=== PATIENT | male | born 1940 | race Caucasian/White ===

== ENCOUNTER 2017-09-29 17:12 | Emergency (ER) | payer MEDICARE, MEDICAID ==
[~2017-09-29] VITALS: Ht 182.9 cm; Wt 82.1 kg
[2017-09-29] MEDS ORDERED: GABA-532 PO (17:51)
[2017-09-29] MEDS ORDERED: THIO200T PO (17:51)
[2017-09-29] MEDS ORDERED: MAG355OR18 PO (17:51)
[2017-09-29] MEDS ORDERED: OXYC-132 PO (17:51)
[2017-09-29] MEDS ORDERED: MAGN400O6 PO (17:51)
[2017-09-29] MEDS ORDERED: AMIO200T2 PO (17:51)
[2017-09-29] MEDS ORDERED: NA P133E RC (17:51)
[2017-09-29] MEDS ORDERED: MULT237L4 PO (17:51)
[2017-09-29] MEDS ORDERED: OXYC-133 PO (17:51)
[2017-09-29] MEDS ORDERED: LIDO30AD10 TD (17:51)
[2017-09-29] MEDS ORDERED: ACET325T53 PO (17:51)
[2017-09-29] MEDS ORDERED: LORA0.5T48 PO (17:51)
[2017-09-29] MEDS ORDERED: NITR0.4T48 SL (17:51)
[2017-09-29] MEDS ORDERED: BUME1TAB4 PO (17:51)
[2017-09-29] MEDS ORDERED: QUET25TA PO (17:51)
[2017-09-29] MEDS ORDERED: LORA-258 PO (17:51)
[2017-09-29] MEDS ORDERED: FINA5TAB3 PO (17:51)
[2017-09-29 17:59] LABS: BASOPHILS % (AUTO) 0.5 % (0.0-2.0); EOSINOPHILS % (AUTO) 0.1 % (0.0-7.0); HEMATOCRIT 36.6 % (36.7-47.1); HEMOGLOBIN 12.2 g/dL (12.5-16.3); LYMPHOCYTES # (AUTO) 0.6 K/uL (20.0-40.0); LYMPHOCYTES % (AUTO) 6.9 % (20.5-51.5); MEAN CORPUSCULAR HEMOGLOBIN 28.4 uug (23.8-33.4); MEAN CORPUSCULAR HGB CONC 33 g/dL (32.5-36.3); MEAN CORPUSCULAR VOLUME 85.2 fL (73.0-96.2); MONOCYTES # (AUTO) 0.9 K/uL (2.0-10.0); MONOCYTES % (AUTO) 10.3 % (0.0-11.0); NEUTROPHILS # (AUTO) 7.3 K/uL (1.8-8.9); NEUTROPHILS % (AUTO) 82.2 % (38.5-71.5); PLATELET COUNT (AUTO) 247 K/uL (152-348); WHITE BLOOD COUNT (AUTO) 8.8 K/uL (3.6-10.2)
[2017-09-29 18:02] LABS: CARBON DIOXIDE 26 mmol/L (21-32); CHLORIDE 101 mmol/L (98-107); CREATININE 1.5 mg/dL (0.6-1.3); GLUCOSE 105 mg/dL (74-106); POTASSIUM 3.9 mmol/L (3.5-5.1); UREA NITROGEN, BLOOD 23 mg/dL (7-18)
[2017-09-29 18:08] LABS: ALANINE AMINOTRANSFERASE 24 U/L (16-63); ALKALINE PHOSPHATASE 149 U/L (50-136); ASPARTATE AMINOTRANSFERASE 24 U/L (15-37); BILIRUBIN,DIRECT 0.1 mg/dL (0.0-0.2); BILIRUBIN,TOTAL 0.3 mg/dL (0.2-1.0); TOTAL PROTEIN, SERUM 7.1 g/dL (6.4-8.2)
--- NOTE | 2017-09-29 19:49 | NUR ---
Patient in bed, no acute distress noted. Patient cleared for d/c per ER MD. Contacted [facility] BLS transportation. 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 Confirmation # is [id number].
--- NOTE | 2017-09-29 20:20 | NUR ---
Patient in bed, awaiting BLS transport for d/c to [facility].
--- NOTE | 2017-09-29 21:07 | NUR ---
Patient discharged to home in stable conditon. Written and verbal after care instructions given. Patient verbalizes understanding of instructions. Patient discharged via BLS transport, [facility] Unit # [id number]. VSS. All belongings with patient. Peripheral IV removed prior to discharge.
[2017-09-29 21:08] VITALS: BP 129/75
== END 2017-09-29 21:11 | disposition home or self-care (01) ==
LOC: ER 17:13
DX: I11.0 Hypertensive heart disease with heart failure (principal); I50.9 Heart failure, unspecified; B34.9 Viral infection, unspecified; I48.91 Unspecified atrial fibrillation; N40.0 Benign prostatic hyperplasia without lower urinary tract symptoms; Z88.5 Allergy status to narcotic agent
CPT/HCPCS: 36415; 70030-TC; 71045; 83605; 85025; 85730; 87040; 93005; A4663; J7050

== ENCOUNTER 2017-10-09 17:53 | Inpatient (IN) | payer MEDICARE, MEDICAID ==
[~2017-10-09] VITALS: Ht 172.7 cm; Wt 90.3 kg
[~2017-10-09 17:53] MED LIST: ACET325T53 PO; AMIO200T2 PO; BUME1TAB4 PO; FINA5TAB3 PO; GABA-532 PO; LIDO30AD10 TD; LORA-258 PO; LORA0.5T48 PO; MAG355OR18 PO; MAGN400O6 PO; MULT237L4 PO; NA P133E RC; NITR0.4T48 SL; OXYC-132 PO; OXYC-133 PO; QUET25TA PO; THIO200T PO
[2017-10-09] MEDS ORDERED: ONDANSETRON 4 MG/2 ML VIAL ONE (17:58)
[2017-10-09] MEDS ORDERED: MORPHINE SULFATE 4 MG/1 ML DISP.SYRIN ONE (17:58)
[2017-10-09] MEDS ORDERED: IV NORMAL SALINE 1000 ML BAG IV ONE (18:15)
[2017-10-09] MEDS ORDERED: MORPHINE SULFATE 2 MG/1 ML DISP.SYRIN IV ONE (18:15)
[2017-10-09] MEDS ORDERED: ONDANSETRON 4 MG/2 ML VIAL IV ONE (18:15)
[2017-10-09 18:38] LABS: CARBON DIOXIDE 25 mmol/L (21-32); CHLORIDE 100 mmol/L (98-107); CREATININE 1.8 mg/dL (0.6-1.3); GLUCOSE 206 mg/dL (74-106); POTASSIUM 3.6 mmol/L (3.5-5.1); UREA NITROGEN, BLOOD 31 mg/dL (7-18)
[2017-10-09 18:40] LABS: BASOPHILS # (AUTO) 0.1 K/uL (0.0-8.0); BASOPHILS % (AUTO) 0.3 % (0.0-2.0); EOSINOPHILS # (AUTO) 0.2 K/uL (0.0-0.7); HEMATOCRIT 43.6 % (36.7-47.1); LYMPHOCYTES # (AUTO) 0.9 K/uL (20.0-40.0); LYMPHOCYTES % (AUTO) 5.1 % (20.5-51.5); MEAN CORPUSCULAR HEMOGLOBIN 27.9 uug (23.8-33.4); MEAN CORPUSCULAR HGB CONC 32 g/dL (32.5-36.3); MEAN CORPUSCULAR VOLUME 86.7 fL (73.0-96.2); MONOCYTES % (AUTO) 6.1 % (0.0-11.0); NEUTROPHILS # (AUTO) 14.8 K/uL (1.8-8.9); NEUTROPHILS % (AUTO) 87.5 % (38.5-71.5); PLATELET COUNT (AUTO) 309 K/uL (152-348); RED BLOOD CELL COUNT(AUTO) 5.03 MIL/uL (4.06-5.63); WHITE BLOOD COUNT (AUTO) 16.9 K/uL (3.6-10.2)
[2017-10-09 18:44] LABS: ALANINE AMINOTRANSFERASE 51 U/L (16-63); ALKALINE PHOSPHATASE 170 U/L (50-136); ASPARTATE AMINOTRANSFERASE 40 U/L (15-37); BILIRUBIN,DIRECT 0.2 mg/dL (0.0-0.2); BILIRUBIN,TOTAL 0.7 mg/dL (0.2-1.0); TOTAL PROTEIN, SERUM 7.4 g/dL (6.4-8.2)
[2017-10-09] MEDS ORDERED: AZITHROMYCIN IV 500 MG in IV DEXTROSE 5% 250 ML IV ONE (19:15)
--- NOTE | 2017-10-09 19:25 | NUR ---
RECEIVED REPORT FROM HAJA PEREZ. PT IS IN BED. PT IS A&OX4. PT IS RECEIVING FLUIDS IV. BREATHING SOUNDS REGULAR AND UNLABORED. VSS. PT ABLE TO EXPRESS NEEDS. CALL LIGHT IN HAND. BED IN LOWEST POSITION W/ SIDERAILS UP.
--- NOTE | 2017-10-09 19:47 | NUR ---
PT IN BED. BREATH SOUNDS REGULAR AND UNLABORED. VSS. NO SIGNS OR SYMPTOMS OF DISTRESS WITNESSED AT THIS TIME. PT STATES THAT HE GREW UP IN [place] AND [place]RI[place] WITH MANY [employer] OFFICERS. MD STALLWORTH & MD DEL RIO DECIDE TO ADMIT TO TELE.
[2017-10-09] MEDS ORDERED: PIPERACILLIN/TAZOBACTAM/D5W 0 ML IV ONE (20:02)
[2017-10-09] MEDS ORDERED: PIPERACILLIN/TAZO 4.5 GM VIAL IV ONE (20:04)
[2017-10-09] MEDS: PIPERACILLIN SODIUM/TAZOBACTAM 4.5 G in IV DEXTROSE 5% 50 ML IV SCH ×2 (20:20→23:00)
[2017-10-09] MEDS ORDERED: AZITHROMYCIN 500 MG VIAL IV ONE (20:40)
[2017-10-09] MEDS ORDERED: ENOX40DI SQ (20:46)
[2017-10-09] MEDS ORDERED: MULT-213 PO (20:46)
[2017-10-09] MEDS ORDERED: GUAI237L83 PO (20:46)
--- NOTE | 2017-10-09 21:36 | NUR ---
REPORT GIVEN TO ANAI PEREZ, 2ND FLOOR TELE
[2017-10-09] MEDS ORDERED: NITROGLYCERIN 0.4 MG/TAB BOTTLE SL PRN (22:15)
[2017-10-09] MEDS ORDERED: LORAZEPAM 0.5 MG TABLET PO PRN (22:15)
[2017-10-09] MEDS ORDERED: ACETAMINOPHEN 325 MG TABLET PO PRN (22:15)
[2017-10-09] MEDS ORDERED: FLEET ENEMA 133 ML BOTTLE RC PRN (22:15)
[2017-10-09] MEDS ORDERED: LEVALBUTEROL HCL NEB 0.63 MG/3 ML NEBU NEB PRN (22:30)
[2017-10-09] MEDS ORDERED: ONDANSETRON 4 MG/2 ML VIAL IV PRN (22:30)
[2017-10-09] MEDS ORDERED: PIPERACILLIN/TAZOBACTAM/D5W 2.25 G in PREMIXED 1 EACH IV SCH (22:30)
--- NOTE | 2017-10-09 22:50 | NUR ---
PT TAKEN TO 2ND FLOOR
--- NOTE | 2017-10-09 22:54 | NUR ---
Received pt at 2254. Alert and awake, oriented to name and time. Complains of pain with cough, no s/s of distress. No SOB. Tele noted to be sinus tachy. Pt changed, made comfortable and oriented to unit. Bed in low, locked position. Call light within reach. Bed alarm on. Will continue to monitor.
[2017-10-09 23:46] VITALS: BP 102/71
[2017-10-10] VITALS (24 sets, daily range): BP systolic 88–128; BP diastolic 49–78
[2017-10-10] MEDS ORDERED: PIPERACILLIN/TAZO 2.25 GM VIAL ONE (00:06)
--- NOTE | 2017-10-10 00:13 | NUR ---
Received critical values from the lab, patient current Troponin level elevated 1.063, Lactic acid 2.9 w/ WBC of 16.9. Dr. Almendarez notified, received orders & carried out. Patient to be moved to CCU for close monitoring & Heparin drip. Tele shows sinus tachy 110 HR.
[2017-10-10] MEDS ORDERED: VANCOMYCIN IV 1,000 MG in IV DEXTROSE 5% 250 ML IV SCH (00:30)
--- NOTE | 2017-10-10 00:30 | NUR ---
Transferred to CCU via bed. No acute resp distress. Report given to CHRIS Ballesteros.
--- NOTE | 2017-10-10 00:45 | NUR ---
Dr Almendarez at bedside for assessment and eval. Report given
[2017-10-10] MEDS ORDERED: HEPARIN SODIUM,PORCINE 5,000 UNITS/ML VIAL ONE (00:58)
[2017-10-10] MEDS ORDERED: HEPARIN SODIUM,PORCINE 5,000 UNITS/ML VIAL IV PRN ×2 (01:15→10:15)
[2017-10-10] MEDS: HEPARIN/D5W DRIP 500 ML IV PRN (01:26)
[2017-10-10] MEDS: POTASSIUM CHLORIDE 20 MEQ in IV NS 1000 ML 1,000 ML IV PRN ×3 (01:39→20:13)
[2017-10-10] MEDS: ASPIRIN EC 325 MG TABLET.DR PO SCH ×2 (01:52→08:05)
[2017-10-10] MEDS: QUETIAPINE FUMARATE 25 MG TABLET PO SCH ×3 (01:52→21:00)
[2017-10-10] MEDS ORDERED: VANCOMYCIN IV 200 ML IV SCH (03:15)
[2017-10-10] MEDS: ACETAMINOPHEN 325 MG TABLET PO PRN (03:46)
[2017-10-10 05:20] LABS: *BILIRUBIN,URIN NEGATIVE (NEGATIVE); *BLOOD, URINE NEGATIVE (NEGATIVE); *CLARITY,URINE CLEAR (CLEAR); *COLOR,URINE YELLOW (YELLOW); *KETONES,URINE TRACE (NEGATIVE); *PROTEIN,URINE 1+ (NEGATIVE); LEUKOCYTE ESTERASE ,URINE NEGATIVE (NEGATIVE); NITRITE, URINE NEGATIVE (NEGATIVE); PH,URINE 5.5 (5.0-8.0); UGLUCOSE NEGATIVE (NEGATIVE)
[2017-10-10] MEDS: PIPERACILLIN/TAZOBACTAM/D5W 2.25 G in PREMIXED 1 EACH IV SCH ×2 (05:35→11:58)
[2017-10-10 05:42] LABS: BACTERIA,URINE NONE SEEN /HPF (NONE SEEN); RBC,URINE NONE SEEN /HPF (0-3); SQUAMOUS EPITHELIAL CELL,UR FEW /HPF (NONE SEEN); URINE AMORPHOUS URATE FEW /HPF; WBC,URINE 0-3 /HPF (0-3)
[2017-10-10] MEDS ORDERED: VANCOMYCIN IV 200 ML ONE (05:44)
--- NOTE | 2017-10-10 07:40 | NUR ---
PT.SLEEPING,NO S/S OF DISTRESS OR PAIN NOTED.
[2017-10-10 07:52] LABS: BASOPHILS # (AUTO) 0.1 K/uL (0.0-8.0); BASOPHILS % (AUTO) 0.6 % (0.0-2.0); EOSINOPHILS % (AUTO) 0.3 % (0.0-7.0); HEMATOCRIT 36.7 % (36.7-47.1); LYMPHOCYTES # (AUTO) 1.2 K/uL (20.0-40.0); LYMPHOCYTES % (AUTO) 12.5 % (20.5-51.5); MEAN CORPUSCULAR HGB CONC 33 g/dL (32.5-36.3); MEAN CORPUSCULAR VOLUME 85.6 fL (73.0-96.2); MONOCYTES # (AUTO) 0.9 K/uL (2.0-10.0); MONOCYTES % (AUTO) 9.9 % (0.0-11.0); NEUTROPHILS # (AUTO) 7.1 K/uL (1.8-8.9); NEUTROPHILS % (AUTO) 76.7 % (38.5-71.5); PLATELET COUNT (AUTO) 270 K/uL (152-348); RED BLOOD CELL COUNT(AUTO) 4.29 MIL/uL (4.06-5.63); WHITE BLOOD COUNT (AUTO) 9.2 K/uL (3.6-10.2)
--- NOTE | 2017-10-10 08:00 | NUR ---
AM MEDS.GIVEN, PT.EATING BREAKFAST.
[2017-10-10] MEDS: GABAPENTIN 100 MG CAPSULE PO SCH ×3 (08:04→16:41)
[2017-10-10] MEDS: AMIODARONE HCL 200 MG TABLET PO SCH (08:05)
[2017-10-10] MEDS: FINASTERIDE 5 MG TABLET PO SCH (08:05)
[2017-10-10 08:09] LABS: ALANINE AMINOTRANSFERASE 44 U/L (16-63); ALKALINE PHOSPHATASE 139 U/L (50-136); ASPARTATE AMINOTRANSFERASE 33 U/L (15-37); BILIRUBIN,TOTAL 0.5 mg/dL (0.2-1.0); CARBON DIOXIDE 27 mmol/L (21-32); CHLORIDE 103 mmol/L (98-107); CHOLESTEROL 155 mg/dL (<200); CREATININE 1.4 mg/dL (0.6-1.3); GLUCOSE 112 mg/dL (74-106); HDL CHOLESTEROL 51 mg/dL (40-60); MAGNESIUM 2.1 mg/dL (1.8-2.4); POTASSIUM 4.1 mmol/L (3.5-5.1); TOTAL PROTEIN, SERUM 6.1 g/dL (6.4-8.2); TRIGLYCERIDES 41 MG/DL (30-150); UREA NITROGEN, BLOOD 29 mg/dL (7-18)
[2017-10-10 08:14] LABS: THYROID STIMULATING HORMONE 0.871 mIU/mL (0.358-3.740)
[2017-10-10] MEDS ORDERED: GUAIFENESIN/DEXTROMETHORPHAN 5 ML UDC PO PRN (08:15)
[2017-10-10] MEDS: MULTIVIT, IRON, MIN NO. 8, FA TABLET PO SCH (08:27)
[2017-10-10] MEDS: FAMOTIDINE. 20 MG/2 ML VIAL IV SCH ×2 (08:53→21:00)
[2017-10-10] MEDS ORDERED: ENOXAPARIN SODIUM 40 MG/0.4 ML DISP.SYRIN SQ SCH (09:00)
[2017-10-10] MEDS ORDERED: Medication Not On Formulary EA (Multivitamins W-Minerals (Multivitamin With Minerals) 1 PO SCH (09:00)
[2017-10-10] MEDS ORDERED: ALBUTEROL SULFATE 1.25 MG/3 ML NEBU NEB PRN (09:45)
--- NOTE | 2017-10-10 10:50 | NUR ---
PT.WAS SEEN BY CHAGO PATRICIA MD
--- NOTE | 2017-10-10 11:00 | NUR ---
pT.UP WITH PT.TOLERATED WELL.
[2017-10-10] MEDS: VANCOMYCIN IV 1,250 MG in IV NORMAL SALINE 500 ML IV SCH (11:09)
[2017-10-10] MEDS: Z GUARD REMEDY PASTE 57 GM TUBE TOP PRN (11:17)
--- NOTE | 2017-10-10 15:45 | NUR ---
PT.WAS SEEN BY DIA KIMBLE WITH NEW ORDERS.
--- NOTE | 2017-10-10 15:55 | NUR ---
Clinical pharmacy note-Vancomycin dosing per pharmacy Subjective: To start Vancomycin dosing on this patient for documented infection(possible HCAP) Objective: BUN/ Scr 29/1.4 WBC 9.2 Temp 98.8 Ht 172.72 cm Wt 78.471 kg Assessment/Plan: Will start Vancomycin 1250mg IV every 24hrs(first dose given today at 1100) and draw trough by 4th dose(not ordered yet) for expected trough around 15. Will monitor daily.
--- NOTE | 2017-10-10 16:05 | NUR ---
Pt.removed SCD trow them on the floor,refused to wear them again.
[2017-10-10] MEDS: MORPHINE SULFATE 4 MG/1 ML DISP.SYRIN IV PRN ×2 (16:41→21:01)
--- NOTE | 2017-10-10 16:50 | NUR ---
Post bath pt.became uncooperative,verbally abusive .
--- NOTE | 2017-10-10 17:41 | NUR ---
Pt.kick dinner tray,refuse to eat.
[2017-10-10] MEDS: PIPERACILLIN/TAZOBACTAM/D5W 50 ML IV SCH ×2 (17:57→23:51)
--- NOTE | 2017-10-10 18:46 | NUR ---
Pt.cooperative,watching TV,eating sandwich.
--- NOTE | 2017-10-10 20:00 | NUR ---
Seen and evaluated by Dr. Almendarez. Pt resting comfortably in bed. Plans of care reviewed. On Heparin infusion at 820 units/hr; no untoward reactions noted. Bleeding precautions observed at all times. Resp easy and regular, on O2 2L/min NC. No apparent acute distress noted. Please see CCU flowsheet for full assessment and clinical data.
[2017-10-10] MEDS: ATORVASTATIN 20 MG TABLET PO SCH (21:00)
[2017-10-10] MEDS: Z GUARD REMEDY PASTE 57 GM TUBE TOP SCH (21:01)
[2017-10-11] VITALS (12 sets, daily range): BP systolic 90–138; BP diastolic 50–68
[2017-10-11] MEDS: HEPARIN/D5W DRIP 500 ML IV PRN (01:55)
[2017-10-11] MEDS: MORPHINE SULFATE 4 MG/1 ML DISP.SYRIN IV PRN ×5 (02:14→20:01)
--- NOTE | 2017-10-11 04:00 | NUR ---
Medicated twice with Morphine at around 2100 and 0200 for c/o pain at ribcage and sacral/lumbar area, with adequate relief. States this kind of pain is something chronic and had MRI in the past with no findings. Noted increased pain with coughing but refuses cough medication. Nursing comfort measures observed at all times.
[2017-10-11] MEDS: Z GUARD REMEDY PASTE 57 GM TUBE TOP PRN (04:04)
[2017-10-11] MEDS: PIPERACILLIN/TAZOBACTAM/D5W 50 ML IV SCH ×4 (05:25→23:00)
--- NOTE | 2017-10-11 06:30 | NUR ---
Was medicated for c/o nausea and same c/o pain, with adequate relief. Upset about multiple attempts of blood draw by different airconditioning drafting officer; states understands purpose of blood draws and was apologetic. Otherwise uneventful night. No bleeding complications from IV heparin. Please see CCU flowsheet for trends and clinical data.
[2017-10-11 07:23] LABS: BASOPHILS # (AUTO) 0.1 K/uL (0.0-8.0); BASOPHILS % (AUTO) 0.6 % (0.0-2.0); EOSINOPHILS # (AUTO) 0.1 K/uL (0.0-0.7); EOSINOPHILS % (AUTO) 1.2 % (0.0-7.0); HEMATOCRIT 35.5 % (36.7-47.1); HEMOGLOBIN 11.6 g/dL (12.5-16.3); LYMPHOCYTES % (AUTO) 11.2 % (20.5-51.5); MEAN CORPUSCULAR HEMOGLOBIN 28.3 uug (23.8-33.4); MEAN CORPUSCULAR HGB CONC 33 g/dL (32.5-36.3); MEAN CORPUSCULAR VOLUME 86.8 fL (73.0-96.2); MONOCYTES # (AUTO) 1.1 K/uL (2.0-10.0); MONOCYTES % (AUTO) 11.7 % (0.0-11.0); NEUTROPHILS # (AUTO) 6.9 K/uL (1.8-8.9); NEUTROPHILS % (AUTO) 75.3 % (38.5-71.5); PLATELET COUNT (AUTO) 238 K/uL (152-348); RED BLOOD CELL COUNT(AUTO) 4.09 MIL/uL (4.06-5.63); WHITE BLOOD COUNT (AUTO) 9.2 K/uL (3.6-10.2)
[2017-10-11 07:36] LABS: ALANINE AMINOTRANSFERASE 37 U/L (16-63); ALKALINE PHOSPHATASE 118 U/L (50-136); ASPARTATE AMINOTRANSFERASE 26 U/L (15-37); BILIRUBIN,TOTAL 0.4 mg/dL (0.2-1.0); CARBON DIOXIDE 28 mmol/L (21-32); CHLORIDE 105 mmol/L (98-107); CREATININE 1.4 mg/dL (0.6-1.3); GLUCOSE 94 mg/dL (74-106); PHOSPHOROUS 2.7 mg/dL (2.5-4.9); POTASSIUM 4.3 mmol/L (3.5-5.1); TOTAL PROTEIN, SERUM 5.6 g/dL (6.4-8.2); UREA NITROGEN, BLOOD 26 mg/dL (7-18)
[2017-10-11] MEDS: FAMOTIDINE. 20 MG/2 ML VIAL IV SCH (08:27)
[2017-10-11] MEDS: AMIODARONE HCL 200 MG TABLET PO SCH (08:27)
[2017-10-11] MEDS: FINASTERIDE 5 MG TABLET PO SCH (08:27)
[2017-10-11] MEDS: QUETIAPINE FUMARATE 25 MG TABLET PO SCH ×2 (08:27→20:05)
[2017-10-11] MEDS: ASPIRIN 81 MG TAB.CHEW PO SCH (08:28)
[2017-10-11] MEDS: MULTIVIT, IRON, MIN NO. 8, FA TABLET PO SCH (08:28)
[2017-10-11] MEDS: GABAPENTIN 100 MG CAPSULE PO SCH ×3 (08:28→17:33)
[2017-10-11] MEDS: Z GUARD REMEDY PASTE 57 GM TUBE TOP SCH ×2 (08:29→20:05)
--- NOTE | 2017-10-11 09:02 | NUR ---
Dr. Corado attending physician in the unit to examine patient, report given including most recent PTT. as stated by MD. telles to down grade patient to telemetry status and discontinue heparin drip if cardiac clearance given by Thermograph Operator Dr. Harry. Dr. Harry notified.
--- NOTE | 2017-10-11 09:52 | NUR ---
A call back from Poultry Processor Dr. Harry orders to discontinued heparin drip received, and with his clearance patient down graded to telemetry status.
[2017-10-11] MEDS: VANCOMYCIN IV 1,250 MG in IV NORMAL SALINE 500 ML IV SCH (10:25)
--- NOTE | 2017-10-11 12:39 | NUR ---
Clinical pharmacy note-Vancomycin dosing per pharmacy Subjective: To continue Vancomycin dosing on this patient for documented infection (possible HCAP) Objective: BUN/ Scr 26/1.4 WBC 9.2 Temp 98.3 Ht 172.72 cm Wt 81.6 kg Assessment/Plan: Will continue same dose of Vancomycin 1250mg IV every 24hrs for today. 2nd dose given today at 1030) and draw trough by 4th dose(not ordered yet) . Will monitor daily.
--- NOTE | 2017-10-11 13:00 | NUR ---
Telephone report given to Katja Silva. patient will be going to room 209. all vitals signs stable.
--- NOTE | 2017-10-11 13:20 | NUR ---
Per safety request patient in the unit awaiting for room closer to nurse's station.
--- NOTE | 2017-10-11 14:14 | NUR ---
WOUND CARE CONSULT: PT PRESENTS WITH FADING DISCOLORATION TO INNER BUTTOCKS, PRESENT ON ADMISSION WELL DISCOLORATION TO LOWER LEGS. PT STOOD UP WITH WALKER DURING P.T. WITH SOME DIFFICULTY DUE TO BACK DISCOMFORT. PT IS CONTINENT AT THIS TIME AND USES URINAL. RT INGUINAL HERNIA NOTED AND SCROTAL SWELLING (HYDROCELE PER PT REPORT). CURRENT SOWMYA SCORE IS 15. ALL SKIN PROTECTION MEASURES IN PLACE AND DISCUSSED WITH NURSING STAFF. IN AGREEMENT WITH PLAN OF CARE. Addendum: 10/11/17 at 1418 by MAYELIN BURTON RN Amended: Links added.
[2017-10-11] MEDS: POTASSIUM CHLORIDE 20 MEQ in IV NS 1000 ML 1,000 ML IV PRN (16:05)
--- NOTE | 2017-10-11 18:34 | NUR ---
At this time patient taken out by amina Silva. all vitals signs stable.
--- NOTE | 2017-10-11 18:45 | NUR ---
TRANSFER FROM CCU TO ROOM 209 VIA BED ALERT ORTX3 COOPERATE WELL NO ACUTE DISTRESS NO PAIN CONTINUE O2 AT 2L/MIN VS TAKEN STABLE SAFETY MEASURE PROVIDED CALL LIGHT IN REACH AND BED ALARM ON HL INPLACE RFA
--- NOTE | 2017-10-11 19:25 | NUR ---
PT RECEIVED IN BED, AWAKE. A/OX4. ABLE TO MAKE NEEDS KNOWN. V/S STABLE. IN NO ACUTE DISTRESS. NO C/O PAIN AT THIS TIME. 20 SINUS RHYTHM WITH FIRST DEGREE AV BLOCK ON THE TELE MONITOR. IVF INFUSING. ON 2LNC, TOLERATING WELL. AFEBRILE. REFUSED DVT PUMP. BILATERAL LOWER EXTREMITIES ELEVATED. HOB ELEVATED. SAFETY MEASURES IMPLEMENTED. BED ALARM SET. CALL LIGHT WITHIN REACH.
[2017-10-11] MEDS: ATORVASTATIN 20 MG TABLET PO SCH (20:04)
[2017-10-11] MEDS: FAMOTIDINE 20 MG TABLET PO SCH (20:06)
[2017-10-11] MEDS: LACTOBACILLUS RHAMNOSUS GG 1 EACH CAPSULE PO SCH (20:06)
[2017-10-12] VITALS: BP 94/50
[2017-10-12] MEDS: MORPHINE SULFATE 4 MG/1 ML DISP.SYRIN IV PRN ×4 (03:51→22:06)
[2017-10-12 04:00] VITALS: BP 125/65
[2017-10-12] MEDS: PIPERACILLIN/TAZOBACTAM/D5W 50 ML IV SCH ×4 (05:02→23:38)
--- NOTE | 2017-10-12 05:50 | NUR ---
END OF SHIFT NOTES. PT SLEPT WELL. THROUGHOUT SHIFT. IN STABLE CONDITION. 53 SINUS MIKI ON THE TELE MONITOR. IVF INFUSING. IV ABX INFUSED. TOLERATED 2NC WELL. AFEBRILE THROUGHOUT SHIFT. LOWER BACK PAIN MANAGED, SACRAL OFFLOADING, PT TURNED Q2HRS. BILATERAL LOWER EXTREMITIES ELEVATED. HOB ELEVATED. ALL NEEDS ATTENDED. SAFETY MAINTAINED. CALL LIGHT WITHIN REACH.
[2017-10-12] MEDS: LACTOBACILLUS RHAMNOSUS GG 1 EACH CAPSULE PO SCH ×2 (08:23→20:59)
[2017-10-12] MEDS: GABAPENTIN 100 MG CAPSULE PO SCH ×3 (08:23→17:34)
[2017-10-12] MEDS: FINASTERIDE 5 MG TABLET PO SCH (08:23)
[2017-10-12] MEDS: FAMOTIDINE 20 MG TABLET PO SCH ×2 (08:23→20:59)
[2017-10-12] MEDS: MULTIVIT, IRON, MIN NO. 8, FA TABLET PO SCH (08:24)
[2017-10-12] MEDS: ASPIRIN 81 MG TAB.CHEW PO SCH (08:24)
[2017-10-12] MEDS: QUETIAPINE FUMARATE 25 MG TABLET PO SCH ×2 (08:25→20:33)
[2017-10-12] MEDS: AMIODARONE HCL 200 MG TABLET PO SCH (08:25)
[2017-10-12] MEDS: Z GUARD REMEDY PASTE 57 GM TUBE TOP SCH ×2 (08:28→20:59)
[2017-10-12] MEDS: POTASSIUM CHLORIDE 20 MEQ in IV NS 1000 ML 1,000 ML IV PRN (09:52)
[2017-10-12 11:37] VITALS: BP 105/56
[2017-10-12] MEDS: VANCOMYCIN IV 1,250 MG in IV NORMAL SALINE 500 ML IV SCH (12:17)
--- NOTE | 2017-10-12 12:46 | NUR ---
Clinical pharmacy note-Vancomycin dosing per pharmacy Subjective: To continue Vancomycin dosing on this patient for sepsis due to HCAP Objective: BUN/ Scr 26/1.4(10/11) WBC 9.2 (10/11) Temp 98.9 Ht 172.72 cm Wt 81.6 kg Assessment/Plan: Will continue same dose of Vancomycin 1250mg IV every 24hrs for today. 3rd dose given today at 1217) and draw trough by 4th dose(ordered for tomorrow at 1030) . Will monitor daily.
[2017-10-12 13:47] VITALS: BP 112/52
[2017-10-12 15:46] VITALS: BP 104/53
--- NOTE | 2017-10-12 19:25 | NUR ---
PT RECEIVED IN BED, AWAKE. A/OX4. ABLE TO MAKE NEEDS KNOWN. V/S STABLE. IN NO ACUTE DISTRESS. NO C/O PAIN AT THIS TIME. 51 SINUS MIKI WITH 1ST DEGREE BLOCK ON THE TELE MONITOR. IV INTACT AND PATENT, TKO. ON 3LNC, TOLERATING WELL. AFEBRILE. OFFLOADING SACRAL AREA, WITH BILATERAL LOWER EXTREMITIES ELEVATED. HOB ELEVATED. SAFETY MEASURES IMPLEMENTED. BED ALARM SET. CALL LIGHT WITHIN REACH.
[2017-10-12 20:00] VITALS: BP 113/56
[2017-10-12] MEDS: ATORVASTATIN 20 MG TABLET PO SCH (20:33)
[2017-10-12] MEDS: ACETAMINOPHEN 325 MG TABLET PO PRN (23:43)
[2017-10-13] VITALS: BP 131/77
[2017-10-13] MEDS: MORPHINE SULFATE 4 MG/1 ML DISP.SYRIN IV PRN ×2 (03:36→09:09)
[2017-10-13 04:00] VITALS: BP 145/67
[2017-10-13] MEDS: PIPERACILLIN/TAZOBACTAM/D5W 50 ML IV SCH ×2 (05:00→11:24)
--- NOTE | 2017-10-13 05:20 | NUR ---
END OF SHIFT NOTES. PT SLEPT WELL. THROUGHOUT SHIFT. IN STABLE CONDITION. 65 SINUS ON THE TELE MONITOR WITH ONE EPISODE OF JUNCTIONAL RHYTHM. IV ABX INFUSED. PT STATES HE IS COMFORTABLE ON RA. AFEBRILE. LOWER BACK PAIN MANAGED, SACRAL OFFLOADING, PT TURNED Q2HRS. BILATERAL LOWER EXTREMITIES ELEVATED. HOB ELEVATED. ALL NEEDS ATTENDED. PT COMPLIANT WITH CARE. SAFETY MAINTAINED. CALL LIGHT WITHIN REACH.
--- NOTE | 2017-10-13 08:30 | NUR ---
Received patient awake alert x4. With IV patent on right forearm on TKO. With pain over lower back rated as 10/10. PRN Morphine given. On room air tolerating well O2 sat WNL. No SOB noted
[2017-10-13] MEDS: QUETIAPINE FUMARATE 25 MG TABLET PO SCH ×2 (09:00→09:18)
--- NOTE | 2017-10-13 09:00 | NUR ---
Refused Seroquel medication. Claims he does not need it. Discussed risks and benefits but patient still refused.
[2017-10-13] MEDS: GABAPENTIN 100 MG CAPSULE PO SCH ×2 (09:13→12:35)
[2017-10-13] MEDS: LACTOBACILLUS RHAMNOSUS GG 1 EACH CAPSULE PO SCH (09:13)
[2017-10-13] MEDS: ASPIRIN 81 MG TAB.CHEW PO SCH (09:13)
[2017-10-13] MEDS: MULTIVIT, IRON, MIN NO. 8, FA TABLET PO SCH (09:18)
[2017-10-13] MEDS: FINASTERIDE 5 MG TABLET PO SCH (09:18)
[2017-10-13] MEDS: FAMOTIDINE 20 MG TABLET PO SCH (09:18)
[2017-10-13] MEDS: Z GUARD REMEDY PASTE 57 GM TUBE TOP SCH (09:19)
[2017-10-13] MEDS: AMIODARONE HCL 200 MG TABLET PO SCH (10:13)
[2017-10-13 11:18] VITALS: BP 118/57
[2017-10-13] MEDS ORDERED: VANCOMYCIN IV 1,250 MG in IV NORMAL SALINE 500 ML IV SCH (12:00)
[2017-10-13] MEDS ORDERED: LEVO500T2 PO (12:11)
--- NOTE | 2017-10-13 12:33 | NUR ---
Clinical pharmacy note-Vancomycin dosing per pharmacy Subjective: To continue Vancomycin dosing on this patient for sepsis due to HCAP Objective: BUN/ Scr 26/1.4(10/11) WBC 9.2 (10/11) Temp 100 Ht 172.72 cm Wt 90 kg Vancomycin trough 9.4 today at 1030 Assessment/Plan: Since Vancomycin trough is subtherapeutic, will increase dose to 1250mg IV every 18hrs(first dose today at 1200) and draw trough by 4th dose(not ordered yet) for expected trough around 15. Will monitor daily.
--- NOTE | 2017-10-13 15:30 | NUR ---
Discharged to [facility] in stable condition. No SOB. Deniesw any pain. Report given to Irais. Routine Discharge care done. Packet given to ambulance staff.
== END 2017-10-13 16:00 | DRG 871 ==
LOC: ER 17:54 → TELE 22:09 → CCU 10-10 00:30 → TELE 10-11 18:48
PROVIDERS: ADMIT Internal Medicine; ATTEND Internal Medicine
DX: A41.9 Sepsis, unspecified organism (principal); J15.9 Unspecified bacterial pneumonia; I21.A1 Myocardial infarction type 2; G93.40 Encephalopathy, unspecified; L89.151 Pressure ulcer of sacral region, stage 1; E44.0 Moderate protein-calorie malnutrition; E88.09 Other disorders of plasma-protein metabolism, not elsewhere classified; D68.59 Other primary thrombophilia; I13.0 Hypertensive heart and chronic kidney disease with heart failure and stage 1 through stage 4 chronic kidney disease, or unspecified chronic kidney disease; L89.621 Pressure ulcer of left heel, stage 1; I50.9 Heart failure, unspecified; I48.0 Paroxysmal atrial fibrillation; R65.20 Severe sepsis without septic shock; Z87.891 Personal history of nicotine dependence; Z68.30 Body mass index [BMI] 30.0-30.9, adult; G89.29 Other chronic pain; G60.9 Hereditary and idiopathic neuropathy, unspecified; M19.90 Unspecified osteoarthritis, unspecified site; Z87.01 Personal history of pneumonia (recurrent); N40.0 Benign prostatic hyperplasia without lower urinary tract symptoms; K44.9 Diaphragmatic hernia without obstruction or gangrene; K40.90 Unilateral inguinal hernia, without obstruction or gangrene, not specified as recurrent; N43.3 Hydrocele, unspecified; Z74.01 Bed confinement status; L89.611 Pressure ulcer of right heel, stage 1; N18.9 Chronic kidney disease, unspecified; I25.10 Atherosclerotic heart disease of native coronary artery without angina pectoris; Z79.82 Long term (current) use of aspirin; F41.9 Anxiety disorder, unspecified
CPT/HCPCS: 36415; 70030-TC; 71045; 74018; 83605; 83735; 84100; 84443; 85025; 85730; 87070; 87086; 87400; 93005; 93307; 97116; 97530; A4663; J0456; J1644; J2270; J2405; J2543; J3370; J3480; J3490; J7030; J7040; J7060